=== PATIENT | male | born 1945 | race Caucasian/White ===

== ENCOUNTER → 2017-04-02 | Outpatient (CLI) | payer MEDICARE, OTHER ==
--- NOTE | 2017-04-02 10:56 | CARDIOVASCULAR REPORT ---
"Cerebrovascular Exam Indications: 780.4 Vertigo. IMPRESSIONS 1. The bilateral vertebral arteries are patent with normal antegrade flow. 2. Study suggests 20-49% stenosis involving the right internal carotid artery, lower end of scale. 3. Study suggests 20-49% stenosis involving the left internal carotid artery. Carotid duplex study. Complete study and Doppler flow study including spectral analysis, color and melgar scale imaging. Height: Height: 177.8cm. Height: 70in. Weight: Weight: 136.1kg. Weight: 299.4lb. Body mass index: BMI: 43kg/m^2. Body surface area: BSA: 2.66m^2. Location: Vascular laboratory. Patient status: Outpatient. Tables: Arterial flow: + +--------+--------+ |Location |V sys |V ed | + +--------+--------+ |Right CCA - proximal|98.2cm/s|22cm/s | + +--------+--------+ |Right CCA - distal |87.2cm/s|23.6cm/s| + +--------+--------+ |Right ECA |74.6cm/s|--------| + +--------+--------+ |Right ICA - proximal|63.3cm/s|22.1cm/s| + +--------+--------+ |Right ICA - mid |66.3cm/s|16.2cm/s| + +--------+--------+ |Right ICA - distal |95.8cm/s|29.5cm/s| + +--------+--------+ |Right vertebral |31.7cm/s|--------| + +--------+--------+ |Left CCA - proximal |109cm/s |28.1cm/s| + +--------+--------+ |Left CCA - distal |100cm/s |22.1cm/s| + +--------+--------+ |Left ECA |80.5cm/s|--------| + +--------+--------+ |Left ICA - proximal |66.2cm/s|17.6cm/s| + +--------+--------+ |Left ICA - mid |62.3cm/s|19.9cm/s| + +--------+--------+ |Left ICA - distal |80.5cm/s|27cm/s | + +--------+--------+ |Left vertebral |45.2cm/s|--------| + +--------+--------+ Velocity ratios: + + + + + + | |Right, V sys|Right, V ed|Left, V sys|Left, V ed| + + + + + + |Max ICA/dist CCA|1.1 |1.25 |0.81 |1.22 | + + + + + + (Report amended ) Electronically signed by: Too Espinoza [id number]"
== END ==
LOC: RT 09:58
DX: R42 Dizziness and giddiness (principal)